=== PATIENT | female | born 1950 | race Caucasian/White ===

== ENCOUNTER 2017-09-02 05:40 | Day surgery (SDC) | payer MEDICARE ==
[~2017-09-02] VITALS: Ht 152.4 cm; Wt 63.5 kg
[~2017-09-02 05:40] MED LIST: ACTIGALL300 MG PO; ALENDRONATE SOD70 MG PO; ARIMIDEX1 MG PO; ASPIRIN EC81 MG PO; CITRACAL + BON1 EACH PO; COD LIVER OIL1 EAC1 PO; FISH OIL 1,0001 EAC1 PO; FLUOXETINE HCL20 MG PO; FOSAMAX70 MG PO; LIPITOR20 MG PO; MYRBETRIQ25 MG PO; PERCOCET 7.5-31 EACH PO; PRESERVISION A1 EACH PO; SUPER B COMPLE150 MG PO; VITAMIN D-32000 UNIT PO
[2017-09-02] MEDS ORDERED: NORCO 5-325 TA1 EACH PO (10:37)
--- NOTE | 2017-09-07 06:10 | OR ---
[facility] [address], [place] [address] Signed DATE OF OPERATION: 09/02/2017 SURGEON: Bob Moraes MD PREOPERATIVE DIAGNOSES: 1. Primary biliary cirrhosis. 2. Cholelithiasis with cholecystitis. POSTOPERATIVE DIAGNOSES: 1. Primary biliary cirrhosis. 2. Cholelithiasis with cholecystitis. PROCEDURES: 1. Laparoscopic cholecystectomy with intraoperative cholangiogram. 2. Needle liver biopsy. ESTIMATED BLOOD LOSS: None. FINDINGS: Cassidy's liver appears unremarkable. She had a long narrow contracted gallbladder with a thickened gallbladder wall with mucoid fluid inside. She had one stone about 4 mm in diameter and then she had small black stones, small granules of sand. Intraoperative cholangiogram was unremarkable both distally and proximally. INDICATIONS: Cassidy is a 67-year-old female who was diagnosed with primary biliary cirrhosis in 2005 while living in [place], [place]. This was diagnosed with her biopsy. She is also known to have sludge and multiple stones in her gallbladder. More recently, she was having difficulty with right upper quadrant abdominal pain, nausea and anorexia. A repeat gallbladder ultrasound showed the stones with a thickened gallbladder wall. Common bile duct was unremarkable. She had been asked to see me as above. I met with Cassidy and her in the office. I gave her a [employer] brochure on the gallbladder. We discussed the location and function of the gallbladder. We reviewed the difference between laparoscopic and open cholecystectomy. They understand the expected intraop and postop course. There is risk of surgery including, but not limited to bleeding, infection, scarring, change in contour of the skin, damage to bowel, damage to the main bile duct, incisional hernias and other unforeseen comorbidities. They had expressed understanding and wished to proceed. Electronically Signed By: BOB MORAES MD 09/07/17 0610 PATIENT NAME: CASSIDY URIBE OPERATIVE REPORT DATE OF : 52 REPORT #: [id number] PHYSICIAN: BOB MORAES MD PCP: AIDA LOPEZ MD REPORT IS CONFIDENTIAL AND NOT TO BE RELEASED WITHOUT AUTHORIZATION [facility] [address], [place] [address] Signed PROCEDURE NOTE: Cassidy was taken into our operating room and placed in a supine position under general endotracheal tube anesthesia. She was given preoperative antibiotics along with subcutaneous heparin. SCDs were utilized. She was then prepped and draped in the usual sterile fashion. On inspection, she does have a small umbilical hernia. Consequently, we utilized the umbilical fascial defect for placement of the Shahnaz trocar. We utilized a standard supraumbilical incision, transverse incision and carried down around the umbilicus bluntly and with the cautery. The Shahnaz catheter was placed through the umbilical fascial defect without difficulty. The abdomen was then insufflated. The other remaining trocars were then placed under direct visualization without difficulty. The gallbladder was then grasped and elevated in the right upper quadrant. It took a few minutes to dissect out the triangle of Calot. A clip was placed on the cystic artery and it was divided. She had a long narrow neck of the gallbladder leading down to her cystic duct. We introduced our intraoperative cholangiocatheter. The intraoperative cholangiogram was then performed. There was no resistance to the injection of contrast. We saw no filling defects. The cystic duct stump was then secured with a PDS Endoloop and 2 clips were placed on the cystic duct stump to brijesh its location. After this, the gallbladder was removed from the gallbladder fossa with the help of cautery and placed into an EndoCatch bag. The right upper quadrant was irrigated and suctioned out until clear. We then used our needle to take a core of the liver just lateral to the gallbladder fossa. Hemostasis was easily achieved with the help of the cautery. The laparoscopic suturing device was then used to pass 0 Vicryl suture on either side of the fascia of the subxiphoid trocar site. This was tied down to close this fascia primarily. After this, the gas was allowed to escape and all the trocars removed along with the gallbladder. The gallbladder was opened on the back table by our circulating nurse. The findings were as above. We then closed the umbilical fascial defect transversely with a running #1 Prolene suture. Local anesthetic was copiously injected into all trocar sites. The umbilical skin was held down to the midline fascia with an interrupted 2-0 PDS suture. 3-0 Monocryl was used to reapproximate the dermis for all trocar sites. Dry gauze and tape were then applied. Cassidy was then awakened from anesthesia, extubated in the OR and taken to recovery room in stable condition. Bob Moraes MD ALB/MODL /[id number] Electronically Signed By: BOB MORAES MD 09/07/17 0610 PATIENT NAME: CASSIDY URIBE OPERATIVE REPORT DATE OF : 52 REPORT #: [id number] PHYSICIAN: BOB MORAES MD PCP: AIDA LOPEZ MD REPORT IS CONFIDENTIAL AND NOT TO BE RELEASED WITHOUT AUTHORIZATION [facility] [address] [place] [address] Signed cc: MD Bob Moore MD Copies: AIDA LOPEZ MD, ANDREW L MD ~ Electronically Signed By: BOB MORAES MD 09/07/17 0610 PATIENT NAME: CASSIDY URIBE OPERATIVE REPORT DATE OF : 52 REPORT #: [id number] PHYSICIAN: BOB MORAES MD PCP: AIDA LOPEZ MD REPORT IS CONFIDENTIAL AND NOT TO BE RELEASED WITHOUT AUTHORIZATION
== END 2017-09-02 12:16 | disposition home or self-care (01) ==
LOC: DS 05:40
PROVIDERS: Colon & Rectal Surgery
PROC: 0FB03ZX Excision of Liver, Percutaneous Approach, Diagnostic (ICD-10-PCS; 2017-09-02)
PROC: 0FT44ZZ Resection of Gallbladder, Percutaneous Endoscopic Approach (ICD-10-PCS; principal; 2017-09-02 06:45)
PROC: BF13YZZ Fluoroscopy of Gallbladder and Bile Ducts using Other Contrast (ICD-10-PCS; 2017-09-02 06:45)
DX: K80.10 Calculus of gallbladder with chronic cholecystitis without obstruction (principal); K74.5 Biliary cirrhosis, unspecified; K76.0 Fatty (change of) liver, not elsewhere classified; E78.5 Hyperlipidemia, unspecified; M81.0 Age-related osteoporosis without current pathological fracture; F32.9 Major depressive disorder, single episode, unspecified; Z90.89 Acquired absence of other organs; Z85.3 Personal history of malignant neoplasm of breast; Z88.0 Allergy status to penicillin; Z88.1 Allergy status to other antibiotic agents; Z79.82 Long term (current) use of aspirin; Z79.899 Other long term (current) drug therapy
CPT/HCPCS: 00790; 74300; 88304; 88307; 88313; J0694; J1644; J1885; J2250; J2405; J2704; J2765; J3010; J7120; Q9967

== ENCOUNTER 2017-09-03 20:19 | Emergency (ER) | payer MEDICARE ==
[~2017-09-03] VITALS: Ht 152.4 cm; Wt 63.5 kg
[~2017-09-03 20:19] MED LIST changes: +NORCO 5-325 TA1 EACH PO
== END 2017-09-04 01:08 | disposition home or self-care (01) ==
LOC: ED 20:19
DX: R50.82 Postprocedural fever (principal); Z85.3 Personal history of malignant neoplasm of breast; Z87.891 Personal history of nicotine dependence; Z88.0 Allergy status to penicillin; Z79.899 Other long term (current) drug therapy; Z79.82 Long term (current) use of aspirin
CPT/HCPCS: 71046; 74177; 80053; 81001; 83605; 83690; 85025; 87040; 99284; Q9967

== ENCOUNTER 2017-12-21 20:06 | Emergency (ER) | payer MEDICARE ==
[~2017-12-21] VITALS: Ht 152.4 cm; Wt 63.6 kg
== END 2017-12-21 21:21 | disposition home or self-care (01) ==
LOC: ED 20:06
PROC: 2W3CX1Z Immobilization of Right Lower Arm using Splint (ICD-10-PCS; principal; 2017-12-21)
DX: S52.501A Unspecified fracture of the lower end of right radius, initial encounter for closed fracture (principal); Z87.891 Personal history of nicotine dependence; Z88.0 Allergy status to penicillin; Z91.048 Other nonmedicinal substance allergy status; Z79.82 Long term (current) use of aspirin; Z79.899 Other long term (current) drug therapy; W18.30XA Fall on same level, unspecified, initial encounter
CPT/HCPCS: 29125; 73110; 99283

== ENCOUNTER 2022-05-13 08:14 | Day surgery (SDC) | payer MEDICARE ==
[~2022-05-13] VITALS: Ht 177.8 cm; Wt 62.5 kg
[~2022-05-13 08:14] MED LIST changes: +CITRACAL + D M1 EACH PO; +COZAAR100 MG PO; +ISO D3 2,000 U1 EACH PO; +MYRBETRIQ50 MG PO; +OXYBUTYNIN CHLO10 MG PO; +RECLAST 55 MG/100 M IV; +ZINC50 M2 PO
--- NOTE | 2022-05-13 10:51 | NUR ---
05/13/22 1051 Salomón Bedolla REORIENTED TO TIME AND SITUATION ON ENTRY TO PACU
--- NOTE | 2022-05-14 06:03 | OR ---
[facility] [address], [place] [address] Signed DATE OF OPERATION: 05/13/2022 SURGEON: Bob Moraes MD PREOPERATIVE DIAGNOSES: 1. Unremarkable colonoscopy in 2012 at age 61. 2. Screening. POSTOPERATIVE DIAGNOSES: 1. Tortuous sigmoid colon. 2. Minimal internal anal skin tags. PROCEDURE: Colonoscopy without biopsy. ESTIMATED BLOOD LOSS: None. INDICATIONS: Cassidy is a 72-year-old female, I have actually known for quite some time. I have also helped take care of her . He is with her today. She actually underwent a negative colonoscopy in 2011 at the age 61 [address] Swain. At that time, she did well with Versed and fentanyl. She was asked to follow up in seven years. She has no family history of colon polyps or colon cancer. She has no lower GI complaints. She carries a diagnosis of primary biliary cirrhosis from a liver biopsy in 2005 while living in [place], [place]. However, I repeated the liver biopsy in 2018 during her laparoscopic cholecystectomy. She had steatosis of the liver, but no obvious primary biliary cirrhosis. During that time, her liver looked very healthy. Her blood work always shows the liver function tests were up a little bit. She had come back to the office for her followup colonoscopy. I gave her a brochure on colonoscopy. We reviewed the nature of the test. There is risk including, but not limited to gas bloating, crampy abdominal pain, bleeding, perforation requiring surgery, and missed diagnosis. We also reviewed the need for IV conscious sedation. She had expressed understanding and wished to proceed. PROCEDURE NOTE: Cassidy was taken into our endoscopy suite and placed in the left lateral decubitus position. She was given IV sedation with 6 mg of Versed and 150 mcg of fentanyl. A digital rectal exam was performed and this was unremarkable. There were no external hemorrhoids. She had good sphincter tone. There were no masses. After this, the adult Electronically Signed By: BOB MORAES MD 05/14/22 0603 PATIENT NAME: CASSIDY URIBE OPERATIVE REPORT DATE OF : 52 REPORT #: [id number] PHYSICIAN: BOB MORAES MD PCP: AIDA LOPEZ MD REPORT IS CONFIDENTIAL AND NOT TO BE RELEASED WITHOUT AUTHORIZATION [facility] [address], [place] [address] Signed colonoscope was introduced and advanced under direct visualization of the camera. She had a very difficult rectosigmoid junction and also a very difficult mid sigmoid colon that was angulated as well. This took some extra sedation, abdominal compression, and very careful maneuvering of the scope to pass through these two areas. After that, the scope actually passed quite readily without any undue tension right into the cecum itself. Her prep was quite excellent. We went back and checked her surgical history and it appears she has no pelvic surgery, yet the sigmoid colon feels a little bit fix. We could easily see the appendiceal orifice and the ileocecal valve. We had withdrawn the scope. We took pictures throughout for photodocumentation. We did not see any sigmoid diverticulosis. There were no polyps. The rectum was unremarkable. Upon retroflexion of the scope, she has a single tiny internal anal skin tag. After this, the gas was suctioned out and the colonoscope removed. Cassidy tolerated the procedure quite well. RECOMMENDATIONS: Cassidy would qualify for a followup screening colonoscopy at age 82. However, due to her advanced age and then the difficulties in her sigmoid colon, she might pursue other methods of screening such as stool samples or barium enema. Otherwise, she would follow up in 10 years so long as her health holds up. Bob Moraes MD ALB/MODL /[id number] cc: MD Bob Moore MD Copies: AIDA LOPEZ MD, ANDREW L MD ~ Electronically Signed By: BOB MORAES MD 05/14/22 0603 PATIENT NAME: CASSIDY URIBE OPERATIVE REPORT DATE OF : 52 REPORT #: [id number] PHYSICIAN: BOB MORAES MD PCP: AIDA LOPEZ MD REPORT IS CONFIDENTIAL AND NOT TO BE RELEASED WITHOUT AUTHORIZATION
== END 2022-05-13 11:29 | disposition home or self-care (01) ==
LOC: DS 08:14 → OPS 08:14 → DS 09:45 → OPS 09:45
PROVIDERS: ATTEND Colon & Rectal Surgery
PROC: 0DJD8ZZ Inspection of Lower Intestinal Tract, Via Natural or Artificial Opening Endoscopic (ICD-10-PCS; principal; 2022-05-13 09:45)
DX: Z12.11 Encounter for screening for malignant neoplasm of colon (principal); K63.89 Other specified diseases of intestine; K64.4 Residual hemorrhoidal skin tags; K74.3 Primary biliary cirrhosis; E78.5 Hyperlipidemia, unspecified; M19.90 Unspecified osteoarthritis, unspecified site; M81.0 Age-related osteoporosis without current pathological fracture; Z91.018 Allergy to other foods; Z88.1 Allergy status to other antibiotic agents; Z88.0 Allergy status to penicillin
CPT/HCPCS: 99153; G0500; J2250; J3010; J7121

== ENCOUNTER 2024-05-04 23:03 | Emergency (ER) | payer MEDICARE ==
[~2024-05-04] VITALS: Ht 152.4 cm; Wt 64.5 kg
[2024-05-05 00:06] LABS: BASOPHILS 6.4 % (0-2); EOSINOPHILS 2.8 % (0-6); HEMOGLOBIN 12.6 g/dL (12.0-18.0); LYMPHOCYTES 20.9 % (24-44); MCH 31.4 (27-36); MCV 92.5 fl (81-99); MONOCYTES 9.4 % (0-12); NEUTROPHILS 60.5 % (39-80); PLATELET COUNT 211 K/uL (140-440); RDW 13.5 (10.5-15.0)
[2024-05-05 00:33] LABS: ALBUMIN 3.1 g/dL (3.4-5.0); ALBUMIN/GLOBULIN RATIO 0.89 (1.1-2.4); ALKALINE PHOSPHATASE 339 U/L (46-116); ALT (SGPT) 49 U/L (14-59); AST (SGOT) 27 U/L (15-37); BILIRUBIN, TOTAL 0.8 ng/dL (0.2-1.0); BUN/CREATININE RATIO 19.17 (6.0-28.6); CALCIUM 9.1 mg/dL (8.5-10.1); CARBON DIOXIDE 28 mmol/L (21-32); CHLORIDE 108 mmol/L (98-107); CREATININE, SERUM 0.73 mg/dL (0.55-1.02); GLOMERULAR FILTRATION RATE,EST 87 mL/min (>60); MAGNESIUM 1.9 mg/dL (1.8-2.4); PROTEIN, TOTAL 6.6 g/dL (6.4-8.2); UREA NITROGEN 14 mg/dL (7-18)
[2024-05-05 00:54] VITALS: BP 126/58
--- NOTE | 2024-05-06 20:49 | EKG ---
[facility] [address] [facility] [place] [address] Signed Normal sinus rhythm Cannot rule out Inferior infarct , age undetermined Abnormal ECG When compared with ECG of 25-AUG-2017 12:37, No significant change was found Confirmed by Jorge A Powell MD ([id number]) on 05/06/2024 8:49:35 PM Electronically Signed By: JORGE A POWELL DO 05/06/242048 PATIENT NAME: SILVIA URIBE Electrocardiogram DATE OF : 52 PHYSICIAN: JORGE A POWELL DO REPORT #: [id number] REPORT IS CONFIDENTIAL AND NOT TO BE RELEASED WITHOUT AUTHORIZATION
== END 2024-05-05 00:55 | disposition home or self-care (01) ==
LOC: ED 23:03
PROVIDERS: Internal Medicine
DX: H81.10 Benign paroxysmal vertigo, unspecified ear (principal); K74.3 Primary biliary cirrhosis; Z85.3 Personal history of malignant neoplasm of breast; Z88.0 Allergy status to penicillin; Z88.1 Allergy status to other antibiotic agents; Z91.018 Allergy to other foods; Z79.82 Long term (current) use of aspirin; Z79.899 Other long term (current) drug therapy
CPT/HCPCS: 36415; 80053; 83735; 84484; 85025; 93005; 93010; 99284

== ENCOUNTER 2025-06-09 16:30 | Emergency (ER) | payer MEDICARE ==
[~2025-06-09] VITALS: Ht 152.4 cm; Wt 62.2 kg
[2025-06-09] MEDS ORDERED: PRESERVISION A1 EAC8 PO (16:45)
[2025-06-09] MEDS ORDERED: STOOL SOFTENER100 MG PO (16:47)
[2025-06-09] MEDS ORDERED: LIDOCAINE HCL 4% 1 EACH PATCH TD ONE (20:30)
[2025-06-09] MEDS ORDERED: ACETAMINOPHEN 500 MG TAB PO ONE (20:30)
[2025-06-09 21:10] VITALS: BP 122/54
== END 2025-06-09 21:00 | disposition home or self-care (01) ==
LOC: ED 16:30
DX: S20.212A Contusion of left front wall of thorax, initial encounter (principal); W18.30XA Fall on same level, unspecified, initial encounter; Z79.82 Long term (current) use of aspirin; Z79.899 Other long term (current) drug therapy; Z88.1 Allergy status to other antibiotic agents; Z88.0 Allergy status to penicillin; Z87.891 Personal history of nicotine dependence; Z91.018 Allergy to other foods
CPT/HCPCS: 70450; 71250; 72125; 74176; 99284-25; A9270